=== PATIENT | female | born 1965 | race Caucasian/White ===

== ENCOUNTER 2022-03-31 12:49 | Outpatient (CLI) | payer BC, SELFPAY ==
[2022-03-31 14:48] LABS: Chloride* 103 mmol/L (96-114); Potassium* 4.4 mmol/L (3.6-5.1); Sodium* 138 mmol/L (135-149)
[2022-03-31 14:50] LABS: Cholesterol* 213 mg/dL (90-199)
[2022-03-31 14:51] LABS: Blood Urea Nitrogen* 15 mg/dL (7-30); Calcium* 8.9 mg/dL (8.4-10.6); Carbon Dioxide* 28 mmol/L (20-32); Creatinine* 0.8 mg/dL (0.5-1.5); Estimated Glomerular Filt Rate 86 ml/min; Glucose* 105 mg/dL (60-115); Triglycerides* 184 mg/dL (40-149)
[2022-03-31 14:52] LABS: HDL Cholesterol* 60 mg/dL (>=50); LDL Cholesterol Calculated 116 mg/dL (<100)
== END 2022-03-31 12:50 | disposition home or self-care (01) ==
PROVIDERS: PCP Family Medicine; Visit Provider Family Medicine
DX: I10 Essential (primary) hypertension (principal); E03.9 Hypothyroidism, unspecified
CPT/HCPCS: 80048; 80061; 84443

== ENCOUNTER 2022-05-19 14:41 | Outpatient (CLI) | payer BC, SELFPAY ==
--- NOTE | 2022-05-19 15:00 | CRLHL7_ITS ---
For Patients: As a result of the Century Cures Act, medical imaging exams and procedure reports are released immediately into your electronic medical record. You may view this report before your referring provider. If you have questions, please contact your health care provider. BILATERAL SCREENING MAMMOGRAM WITH COMPUTER-AIDED DETECTION TECHNIQUE: CC and MLO views were obtained. These mammographic images have been obtained using full-field digital technique. These mammographic images were interpreted with the benefit of computer-aided detection. COMPARISON FILM: 03/04/20, 11/15/16, 01/28/14. FINDINGS: The breasts are heterogeneously dense, which may obscure small masses IMPRESSION: There is no radiographic evidence for malignancy. ASSESSMENT: BI-RADS Category 1: Negative RECOMMENDATION: Routine screening mammogram in 1 year. A lay language report of this examination will be provided to the patient. Lauri Chavez M.D. Diagnostic Radiologist [email or web address] Transcribed: 4:27 pm DW/Dictated by: Lauri Chavez MD @ 05/20/2022 9:01:00 AM (Electronically Signed)
== END 2022-05-19 14:42 | disposition home or self-care (01) ==
LOC: MAMMO 14:42
PROVIDERS: PCP Family Medicine; Visit Provider Family Medicine
DX: Z12.31 Encounter for screening mammogram for malignant neoplasm of breast (principal); R92.2 Inconclusive mammogram
CPT/HCPCS: 77063; 77067

== ENCOUNTER 2023-01-20 13:39 | Outpatient (CLI) | payer BC, SELFPAY ==
--- NOTE | 2023-01-20 14:30 | MR_ITS ---
[address] [address] Phone:?[phone] Fax:?[phone] Referring Physician Information: Wero Lomax [address] [facility] [address] Phone:?[phone] Fax:?[phone] Patient:Janeen Siu D.O.B:?1965 Sex:?Female Phone:?[phone] [facility] MRN:?[id number] Exam Date:?01/20/2023 EXAM: MRI of the RIGHT SHOULDER, without contrast CLINICAL HISTORY: Right shoulder pain. Bicipital tendinitis. Evaluate for impingement, internal derangement, labral pathology, and biceps pathology. COMPARISONS: Plain radiographs 11/15/2022. TECHNICAL: MRI sequences of the right shoulder: Axials: PD, T2 Coronals: PD, STIR, T2 Sagittals: PD, T2 SEDATION: None CONTRAST: None FINDINGS: Bones: No fracture or suspicious bone marrow signal abnormality. Coracoacromial arch: Acromion: No os acromiale. Type I-II acromion. Acromiohumeral space: The bony distance is unremarkable. Coracohumeral space: The bony distance is unremarkable. Acromioclavicular joint: No acute injury, arthropathy, or inferior hypertrophy. Coracoclavicular ligament: The coracoclavicular ligament is intact. Rotator cuff muscles/tendons: Supraspinatus: There is a 1.0 cm in AP dimension by 0.5 cm in transverse dimension ill-defined high-grade partial-thickness bursal sided tear of the anterior portion of the supraspinatus tendon insertional footprint that contacts the cortical insertional surface. No muscular atrophy. Infraspinatus: The infraspinatus tendon and muscle are intact. Teres minor: The teres minor tendon and muscle are intact. Subscapularis: The subscapularis tendon and muscle are intact. Labrum and glenohumeral joint: No evidence of labral tear although evaluation is suboptimal because of nonarthrogram technique. Physiologic amount of joint fluid. No full-thickness chondral defect or subchondral bone marrow edema/cystic change is seen. No convincing evidence of capsular edema or thickening although evaluation is suboptimal because of lack of joint distention. Proximal biceps tendon, long head and short heads: The long and short heads of the proximal biceps tendon are intact. Bursae: Subacromial/subdeltoid: Mild bursitis. Subcoracoid: No convincing subcoracoid bursal thickening/bursitis. IMPRESSION: 1. 1.0 x 0.5 cm ill-defined high-grade partial-thickness bursal sided tear of the anterior portion of the supraspinatus tendon insertional footprint contacts the cortical insertional surface. 2. No atrophy of the rotator cuff musculature. 3. Intact biceps tendon. No evidence of labral tear on this nonarthrogram study. RCB Electronically signed on 01/21/2023 8:50:00 AM by Onofre Galvez M.D.
== END 2023-01-20 13:40 | disposition home or self-care (01) ==
LOC: MRI 13:40
PROVIDERS: PCP Family Medicine; Visit Provider Physician Assistant
DX: M25.511 Pain in right shoulder (principal); M75.101 Unspecified rotator cuff tear or rupture of right shoulder, not specified as traumatic; M25.811 Other specified joint disorders, right shoulder; M75.21 Bicipital tendinitis, right shoulder
CPT/HCPCS: 73221

== ENCOUNTER 2023-04-14 12:15 | Outpatient (CLI) | payer BC, SELFPAY | END 2023-04-14 12:16 | disposition home or self-care (01) | PROVIDERS: PCP Family Medicine; Visit Provider Family Medicine | DX: E03.9 Hypothyroidism, unspecified (principal); L03.119 Cellulitis of unspecified part of limb; I10 Essential (primary) hypertension; R60.0 Localized edema | CPT/HCPCS: 80048; 83735; 84443; 85025; 85379 ==

== ENCOUNTER 2023-04-15 15:42 | Outpatient (CLI) | payer BC, SELFPAY ==
--- NOTE | 2023-04-15 16:00 | CRLHL7_ITS ---
For Patients: As a result of the Century Cures Act, medical imaging exams and procedure reports are released immediately into your electronic medical record. You may view this report before your referring provider. If you have questions, please contact your health care provider. INDICATION: Leg pain and swelling. TECHNIQUE: Ultrasound venous duplex lower left extremity. Compression venous exam was performed using bradley-scale, color Doppler, and spectral Doppler analysis. COMPARISON: None. FINDINGS: Deep veins: Sonographic imaging demonstrates the left common femoral, deep femoral, superficial femoral, popliteal, posterior tibial and the contralateral right common femoral veins to be fully compressible with normal color Doppler blood flow. Superficial veins: Greater saphenous vein is fully compressible. No popliteal cyst. IMPRESSION: No sign of deep venous thrombosis in the left lower extremity. Dictated by Saji Duarte MD @ 04/15/2023 5:38:15 PM (Electronically Signed)
== END 2023-04-15 15:43 | disposition home or self-care (01) ==
LOC: US 15:43
PROVIDERS: PCP Family Medicine; Visit Provider Family Medicine
DX: R22.42 Localized swelling, mass and lump, left lower limb (principal); M79.89 Other specified soft tissue disorders
CPT/HCPCS: 93971

== ENCOUNTER 2024-01-12 07:51 | Outpatient (CLI) | payer BC, SELFPAY ==
--- NOTE | 2024-01-12 09:15 | W.ANESCHARGE ---
Anesthesia Charges Start Date/Time Anesthesia Start Date: 01/12/24 Anesthesia Start Time: 08:39 Stop Date/Time Anesthesia Stop Date: 01/12/24 Anesthesia Stop Time: 09:13
== END 2024-01-12 07:52 | disposition home or self-care (01) ==
LOC: OP CLINIC 07:51
PROVIDERS: PCP Family Medicine; Visit Provider Surgery
DX: Z12.11 Encounter for screening for malignant neoplasm of colon (principal); K63.5 Polyp of colon; K62.1 Rectal polyp; K64.4 Residual hemorrhoidal skin tags
CPT/HCPCS: 00811; 45385; 88305; J2704

== ENCOUNTER 2024-05-24 13:46 | Outpatient (CLI) | payer BC, SELFPAY ==
--- NOTE | 2024-05-24 14:00 | CRLHL7_ITS ---
For Patients: As a result of the Century Cures Act, medical imaging exams and procedure reports are released immediately into your electronic medical record. You may view this report before your referring provider. If you have questions, please contact your health care provider. BILATERAL SCREENING MAMMOGRAM WITH COMPUTER-AIDED DETECTION AND TOMOSYNTHESIS TECHNIQUE: CC and MLO views were obtained. These mammographic images have been obtained using full-field digital technique. These mammographic images were interpreted with the benefit of computer-aided detection. Breast Tomosynthesis was used in this interpretation. COMPARISON FILM: 05/19/22, 03/04/20, 11/15/16. FINDINGS: The breasts are extremely dense, which lowers the sensitivity of mammography IMPRESSION: There is no radiographic evidence for malignancy. ASSESSMENT: BI-RADS Category 2: Benign RECOMMENDATION: Routine screening mammogram in 1 year. A lay language report of this examination will be provided to the patient. Lauri Chavez M.D. Diagnostic Radiologist [email or web address] RUFINO/juan / bM/Dictated by: Lauri Chavez MD @ 05/25/2024 10:53:00 AM (Electronically Signed)
== END 2024-05-24 13:47 | disposition home or self-care (01) ==
LOC: MAMMO 13:46
PROVIDERS: PCP Family Medicine; Visit Provider Family Medicine
DX: Z12.31 Encounter for screening mammogram for malignant neoplasm of breast (principal); R92.333 Mammographic heterogeneous density, bilateral breasts
CPT/HCPCS: 77063; 77067

== ENCOUNTER 2024-06-14 07:30 | Outpatient (CLI) | payer BC, SELFPAY | END 2024-06-14 07:31 | disposition home or self-care (01) | LOC: NFLDREF 06-17 12:20 | PROVIDERS: PCP Family Medicine; Referring Provider Family Medicine; Visit Provider Family Medicine | DX: E03.9 Hypothyroidism, unspecified (principal); I10 Essential (primary) hypertension | CPT/HCPCS: 80048; 80061; 84443 ==

== ENCOUNTER 2024-11-01 14:26 | Outpatient (CLI) | payer BC, SELFPAY ==
--- NOTE | 2024-11-01 14:30 | MR_ITS ---
[address] [address] Phone:?[phone] Fax:?[phone] Referring Physician Information: Wero Lomax [address] [facility] [address] Phone:?[phone] Fax:?[phone] Patient:Janeen Siu D.O.B:?1965 Sex:?Female Phone:?[phone] [facility] MRN:?[id number] Exam Date:?11/01/2024 EXAM: MRI of the LEFT KNEE, without contrast CLINICAL: Evaluate for patellar bone lesion/cyst. COMPARISONS: X-rays dated 10/10/2024. TECHNICAL: Multiplanar multisequence MRI of the left knee was obtained. SEDATION: None. CONTRAST: None. FINDINGS: Ligaments: ACL: Intact and unremarkable. PCL: Intact and unremarkable. MCL: Intact and unremarkable. LCL: Intact and unremarkable. Posterolateral corner: Popliteus, biceps femoris, iliotibial band, and the popliteofibular ligament appear intact. Posteromedial corner: Semimembranosus, pes anserine tendons and posterior oblique ligament appear intact. Extensor mechanism: Patellar tendon: Intact, without tendinopathy. Quadriceps tendon: Intact, without tendinopathy. Retinacula: Medial and lateral retinacula are intact. Fat pads: Unremarkable infrapatellar Hoffa's, quadriceps and prefemoral fat pads. Patellofemoral joint: Patella: There is full-thickness chondral loss involving the patella with mild underlying subchondral reactive marrow edema/cystic change. Trochlea: There is high-grade/full-thickness chondral loss involving the peripheral medial trochlea. Focal chondral fissure involving the central trochlea on axial series 4 image 13. Medial compartment: Medial meniscus: No evidence of discrete meniscal tear or meniscal displacement. Medial cartilage: No significant chondromalacia. Lateral compartment: Lateral meniscus: No evidence of discrete meniscal tear or meniscal displacement. Lateral cartilage: Small segment of grade 2-3 chondral loss involves the posterior lateral tibial plateau adjacent to the posterior horn lateral meniscus on sagittal series 6 images 19-20 and coronal series 8 image 20. Lateral femoral condyle cartilage is preserved. Knee joint: Effusion: Physiologic left knee effusion. Intra-articular bodies:?No convincing bodies identified. Popliteal cyst: None. Bones: No suspicious bone marrow signal alteration or fracture line. IMPRESSION: 1. 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 2. Small segment of grade 2-3 chondral loss involving the posterior lateral tibial plateau adjacent to the posterior horn lateral meniscus. 3. No evidence of meniscal tear, ligamentous injury or fracture. No concerning osseous lesion. JCZ Electronically signed on 11/02/2024 9:49:00 AM by Ruel Zuniga D.O.
== END 2024-11-01 14:27 | disposition home or self-care (01) ==
LOC: MRI 14:27
PROVIDERS: PCP Family Medicine; Visit Provider Physician Assistant
DX: M25.562 Pain in left knee (principal); M85.60 Other cyst of bone, unspecified site
CPT/HCPCS: 73721

== ENCOUNTER 2024-12-25 11:57 | Outpatient (CLI) | payer BC, SELFPAY | END 2024-12-25 11:58 | disposition home or self-care (01) | LOC: NFLDREF 11:57 | PROVIDERS: PCP Family Medicine; Visit Provider Family Medicine | DX: E03.9 Hypothyroidism, unspecified (principal) | CPT/HCPCS: 84439; 84443 ==

== ENCOUNTER 2025-06-12 13:54 | Outpatient (CLI) | payer BC, SELFPAY ==
--- NOTE | 2025-06-12 15:00 | CRLHL7_ITS ---
For Patients: As a result of the Century Cures Act, medical imaging exams and procedure reports are released immediately into your electronic medical record. You may view this report before your referring provider. If you have questions, please contact your health care provider. INDICATION: BILATERAL SCREENING MAMMOGRAM, ASYMPTOMATIC 59 Y/O FEMALE COMPARISON: 05/24/2024, 05/19/2022, 03/04/2020 TECHNIQUE: Digital mammogram in CC and MLO projections including computer-aided detection (CAD) and tomosynthesis. BREAST COMPOSITION: The breasts are heterogeneously dense, which may obscure small masses. FINDINGS: No suspicious findings. ASSESSMENT: BI-RADS 2 Benign RECOMMENDATION: Annual screening mammogram. A lay language report of this examination will be provided to the patient. Dictated by: Lauri Chavez MD @ 06/13/2025 09:59:41 (Electronically Signed)
== END 2025-06-12 13:55 | disposition home or self-care (01) ==
LOC: MAMMO 13:55
PROVIDERS: PCP Family Medicine; Visit Provider Family Medicine
DX: Z12.31 Encounter for screening mammogram for malignant neoplasm of breast (principal); R92.333 Mammographic heterogeneous density, bilateral breasts
CPT/HCPCS: 77063; 77067

== ENCOUNTER 2025-06-14 08:49 | Outpatient (CLI) | payer BC, SELFPAY | END 2025-06-14 08:50 | disposition home or self-care (01) | PROVIDERS: PCP Family Medicine; Visit Provider Family Medicine | DX: E03.9 Hypothyroidism, unspecified (principal); I10 Essential (primary) hypertension | CPT/HCPCS: 80048; 80061; 84443; 85025 ==